=== PATIENT | male | born 1950 | race Caucasian/White ===

== ENCOUNTER 2017-09-23 15:00 | Outpatient (RCR) | payer MEDICARE ==
[~2017-09-23 15:00] MED LIST: ASPIR-LOX325 MG PO; ASPIRIN 32325 MG/TAB PO; ASPIRIN 81M81 MG/TA2 PO; CINNAMON500 MG PO; HUMALOG100 U/ML SQ; HUMULIN 70 U/ML10 ML SC; LANTUS100 U/ML; LEVEMIR100 U/ML SQ; LIPITOR 80MG80 MG PO; LOPRESSOR 225 MG/TAB PO; MULTIPLE VITAMI1 CAP PO; PLAVIX 75MG TAB75 MG PO
== END 2017-10-21 13:19 | disposition home or self-care (01) ==
LOC: WSPT 15:00
DX: I69.354 Hemiplegia and hemiparesis following cerebral infarction affecting left non-dominant side (principal); E10.69 Type 1 diabetes mellitus with other specified complication; Z79.4 Long term (current) use of insulin; Z79.82 Long term (current) use of aspirin
CPT/HCPCS: G8978-GP; G8979-GP; G8980-GP; G8987-GO; G8988-GO